=== PATIENT | female | born 1950 | race Caucasian/White ===

== ENCOUNTER 2023-02-06 16:23 | Observation (INO) | payer OTHER ==
[2023-02-06] MEDS ORDERED: ACETAMINOPHEN 1000 MG/100 ML BAG IVPB ONE (17:37)
[2023-02-06] MEDS ORDERED: FAMOTIDINE 20 MG/50 ML IVPB 20 MG/50 ML MG IVPB ONE ×2 (17:42→17:52)
[2023-02-06] MEDS ORDERED: ACETAMINOPHEN INJECTION 100 ML IVPB ONE (17:51)
[2023-02-06 18:01] LABS: BASO % 1.3 % (0-2.0); EOS % 2.4 % (0-4.5); HEMATOCRIT 35.3 % (32.4-45.2); HEMOGLOBIN 11.8 GM/dL (10.7-15.3); LYMPH % 38.6 % (8-40); MCH 27.7 pg (25.7-33.7); MCHC 33.5 g/dl (32.0-36.0); MEAN CELL VOLUME 82.7 fl (80-96); NEUT % 48.7 % (42.8-82.8); PLATELET COUNT 226 10^3/uL (134-434); RBC 4.27 M/mm3 (3.60-5.2); RDW 14.2 % (11.6-15.6)
[2023-02-06 18:08] LABS: INR 1.1 (0.83-1.09); PROTHROMBIN TIME (PATIENT) 12.7 SEC (9.7-13.0)
[2023-02-06 18:11] LABS: ACTIVATED PTT 29.5 SECONDS (25.2-36.5)
[2023-02-06 18:29] LABS: POTASSIUM 4.5 mmol/L (3.5-5.1)
[2023-02-06 18:31] LABS: ALBUMIN 3.5 g/dl (3.4-5.0)
[2023-02-06 18:32] LABS: BLOOD UREA NITROGEN 15.8 mg/dL (7-18)
[2023-02-06 18:34] LABS: CREATININE 0.8 mg/dL (0.55-1.3)
[2023-02-06 18:36] LABS: BILIRUBIN,TOTAL 0.2 mg/dL (0.2-1); TOT PROT 7.4 g/dl (6.4-8.2)
[2023-02-06] MEDS ORDERED: ASPIRIN 81 MG CHEWABLE TABLETS PO ONE (18:52)
[2023-02-06] MEDS ORDERED: ASPIRIN 81 MG CHEWABLE TABLETS ONE (19:15)
[2023-02-06] MEDS ORDERED: LIDOCAINE 5% TOPICAL PATCH TP ONE (19:31)
[2023-02-06] MEDS ORDERED: morphine CARPU-JECT 2 MG/1 ML DISP.SYRIN IVPUSH ONE (19:31)
[2023-02-06] MEDS ORDERED: LIDOCAINE 5% TOPICAL PATCH ONE (19:42)
[2023-02-06 22:19] LABS: PH,URINE 7.5 (5.0-8.0); URINE APPEARANCE CLEAR; URINE BILIRUBIN NEGATIVE (NEGATIVE); URINE COLOR YELLOW; URINE GLUCOSE (UA) NEGATIVE (NEGATIVE); URINE KETONE NEGATIVE (NEGATIVE); URINE LEUK ESTERASE NEGATIVE (NEGATIVE); URINE NITRITE NEGATIVE (NEGATIVE); URINE PROTEIN NEGATIVE (NEGATIVE); URINE UROBILINOGEN 0.2 mg/dL (0.2-1.0)
[2023-02-07 08:30] LABS: HEMATOCRIT 37.2 % (32.4-45.2); HEMOGLOBIN 12.5 GM/dL (10.7-15.3); MCH 27.7 pg (25.7-33.7); MCHC 33.5 g/dl (32.0-36.0); MEAN CELL VOLUME 82.5 fl (80-96); MEAN PLT VOLUME 8.1 fl (7.5-11.1); PLATELET COUNT 225 10^3/uL (134-434); RDW 14.2 % (11.6-15.6); WHITE BLOOD COUNT 5.2 K/mm3 (4.0-10.0)
[2023-02-07 08:53] LABS: CALCIUM 8.9 mg/dL (8.5-10.1)
[2023-02-07 08:54] LABS: ALBUMIN 3.6 g/dl (3.4-5.0)
[2023-02-07] MEDS ORDERED: ENOXAPARIN NA (PORCINE) 40 MG/0.4 ML DISP.SYRIN SQ ONE (08:54)
[2023-02-07] MEDS ORDERED: LISINOPRIL 20 MG TABLET ONE (08:54)
[2023-02-07 08:57] LABS: CREATININE 0.8 mg/dL (0.55-1.3)
[2023-02-07 08:58] LABS: BILIRUBIN,TOTAL 0.3 mg/dL (0.2-1); CHOLESTEROL 176 mg/dL (50-200); TOT PROT 7.5 g/dl (6.4-8.2)
[2023-02-07] MEDS: LISINOPRIL 20 MG TABLET PO SCH (09:10)
[2023-02-07] MEDS: ENOXAPARIN NA (PORCINE) 40 MG/0.4 ML DISP.SYRIN SQ SCH (09:10)
[2023-02-07 11:56] VITALS: BMI 28.5
[2023-02-07] MEDS: NIFEdipine E.R. 30 MG TABLET PO SCH (21:31)
[2023-02-08] MEDS: LISINOPRIL 20 MG TABLET PO SCH (09:01)
[2023-02-08] MEDS ORDERED: REGADENOSON 0.4 MG/5 ML PRE-FILLED SYRINGE IVPUSH ONE ×2 (09:15→10:12)
[2023-02-08] MEDS: ENOXAPARIN NA (PORCINE) 40 MG/0.4 ML DISP.SYRIN SQ SCH (12:07)
[2023-02-08] MEDS: FAMOTIDINE 20 MG TABLET PO SCH (12:08)
[2023-02-08 14:16] VITALS: RESP 18
[2023-02-08] MEDS: NIFEdipine E.R. 30 MG TABLET PO SCH (21:10)
[2023-02-08] MEDS ORDERED: ATORVASTATIN CA 80 MG TABLET (FP) PO SCH (22:00)
[2023-02-09] MEDS: LISINOPRIL 20 MG TABLET PO SCH (09:35)
[2023-02-09] MEDS: FAMOTIDINE 20 MG TABLET PO SCH (09:36)
[2023-02-09] MEDS: ENOXAPARIN NA (PORCINE) 40 MG/0.4 ML DISP.SYRIN SQ SCH (09:36)
[2023-02-09 09:45] VITALS: BP 121/70; PULSE 60; TEMP 97.8
[2023-02-09] MEDS ORDERED: ASPIRIN 81 MG CHEWABLE TABLETS PO SCH (10:00)
[2023-02-09 11:55] LABS: HEMOGLOBIN 12.8 GM/dL (10.7-15.3); MCH 27.6 pg (25.7-33.7); MCHC 32.8 g/dl (32.0-36.0); MEAN PLT VOLUME 8.7 fl (7.5-11.1); PLATELET COUNT 255 10^3/uL (134-434); RBC 4.64 M/mm3 (3.60-5.2); RDW 14.3 % (11.6-15.6)
[2023-02-09 12:18] LABS: POTASSIUM 3.7 mmol/L (3.5-5.1)
[2023-02-09 12:20] LABS: ALBUMIN 3.7 g/dl (3.4-5.0); BLOOD UREA NITROGEN 16.2 mg/dL (7-18); CALCIUM 9.3 mg/dL (8.5-10.1)
[2023-02-09 12:23] LABS: CREATININE 0.8 mg/dL (0.55-1.3); PHOSPHOROUS 3.6 mg/dL (2.5-4.9)
[2023-02-09 12:25] LABS: BILIRUBIN,TOTAL 0.3 mg/dL (0.2-1); TOT PROT 7.6 g/dl (6.4-8.2)
== END 2023-02-09 13:55 | disposition home or self-care (01) ==
LOC: JER 16:23 → INTOOBSV 22:05 → UNDOADMOB 22:05 → JERBED 22:05 → J4W 02-07 11:16
PROVIDERS: ADMIT Internal Medicine; ATTEND Internal Medicine
PROC: 3E033NZ Introduction of Analgesics, Hypnotics, Sedatives into Peripheral Vein, Percutaneous Approach (ICD-10-PCS; principal; 2023-02-07)
PROC: 3E033NZ Introduction of Analgesics, Hypnotics, Sedatives into Peripheral Vein, Percutaneous Approach (ICD-10-PCS; 2023-02-07)
PROC: 3E023GC Introduction of Other Therapeutic Substance into Muscle, Percutaneous Approach (ICD-10-PCS; 2023-02-07)
PROC: 3E033GC Introduction of Other Therapeutic Substance into Peripheral Vein, Percutaneous Approach (ICD-10-PCS; 2023-02-07)
DX: R77.8 Other specified abnormalities of plasma proteins (principal); G56.00 Carpal tunnel syndrome, unspecified upper limb; K21.9 Gastro-esophageal reflux disease without esophagitis; I10 Essential (primary) hypertension; Z29.8 Encounter for other specified prophylactic measures; R07.9 Chest pain, unspecified; R10.9 Unspecified abdominal pain
CPT/HCPCS: 0241U-QW; 36415; 71045-TC-FY; 71275-TC; 74174-TC; 78452-TC; 80053; 80061; 81003; 82465; 83690; 83735; 84100; 84436; 84443; 84484; 85025; 85027; 85610; 85730; 87086; 93005; 93010; 93017; 93306-TC; 94640; 96365; 99285-25; A9502; G0378; J2785